=== PATIENT | male | born 1985 | race Two or more races ===

== ENCOUNTER 2019-08-17 21:26 | Emergency (ER) | payer OTHER ==
[~2019-08-17] VITALS: Ht 170.2 cm; Wt 68.0 kg
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
--- NOTE | 2019-08-18 00:11 | NUR ---
PATIENT IS SLEEPING. EASILY AROUSABLE THROUGH VERBAL AND MECHANICAL STIMULI. CONNECTED TO MONITOR. BREATHING EVENLY AND UNLABORED ON ROOM AIR. SITTER AT BEDSIDE
[2019-08-18 05:37] VITALS: BP 123/76
--- NOTE | 2019-08-18 05:37 | NUR ---
Patient is ambulatory with a steady gait.
--- NOTE | 2019-08-18 05:37 | NUR ---
Patient discharged to home in stable condition. Written and verbal after care instructions given. Patient verbalizes understanding of instruction.
== END 2019-08-18 05:38 | disposition home or self-care (01) ==
LOC: EDBD 21:29 → ER 21:29
DX: F10.129 Alcohol abuse with intoxication, unspecified (principal); Y90.9 Presence of alcohol in blood, level not specified

== ENCOUNTER 2019-08-23 22:48 | Emergency (ER) | payer OTHER ==
[~2019-08-23] VITALS: Ht 172.7 cm; Wt 70.8 kg
--- NOTE | 2019-08-23 23:10 | NUR ---
BIBRA[address] ETOH, DENIES SI/HI, STATES HE'S DEPRESSED. PT AAOX3, VSS. DENIES CP, SOB, N/V AT THIS TIME. PT SEEN & EVAL'D BY DR. MCINTOSH. WILL CONT TO MONITOR.
[2019-08-24 05:21] VITALS: BP 121/73
--- NOTE | 2019-08-24 05:21 | NUR ---
Patient discharged to home in stable condition. Written and verbal after care instructions given. Patient verbalizes understanding of instruction. Pt ambulated with steady gait. vss.
== END 2019-08-24 05:22 | disposition home or self-care (01) ==
LOC: ER 22:48
DX: F10.129 Alcohol abuse with intoxication, unspecified (principal); Y90.9 Presence of alcohol in blood, level not specified
CPT/HCPCS: 82962-TC

== ENCOUNTER → 2019-10-12 | Emergency (ER) | payer OTHER ==
[~2019-10-12] VITALS: Ht 170.2 cm; Wt 68.0 kg
[~2019-10-12] MED LIST: CHLORDIAZEPOXIDE HCL 25 MG CAPSULE ONE
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
[2019-10-12] MEDS: CHLORDIAZEPOXIDE HCL 25 MG CAPSULE PO ONE (16:05)
--- NOTE | 2019-10-12 16:33 | NUR ---
Patient given written and verbal discharge instructions. Patient verbalizes understanding of instructions. Patient is ambulatory with steady gait. Refuses offer of half-way placement. Patient given list of available shelters in surrounding area. In proper clothing upon discharge, no belongings when patient was brought here. Name band removed.
[2019-10-12 16:34] VITALS: BP 136/90
--- NOTE | 2019-10-12 16:36 | NUR ---
UNABLE TO DEPART.
== END | disposition home or self-care (01) ==
LOC: ER 15:48
DX: F10.239 Alcohol dependence with withdrawal, unspecified (principal); Y90.9 Presence of alcohol in blood, level not specified

== ENCOUNTER 2019-10-28 07:15 | Inpatient (IN) | payer OTHER ==
[~2019-10-28] VITALS: Ht 172.7 cm; Wt 72.2 kg
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
--- NOTE | 2019-10-28 07:22 | NUR ---
PT SEEN AND EXAMINED BY .
--- NOTE | 2019-10-28 07:22 | NUR ---
SEEN AND EXAMINED BY .
[2019-10-28] MEDS ORDERED: LORAZEPAM INJ 2 MG/ML VIAL IVP ONE (07:30)
[2019-10-28] MEDS ORDERED: IV NS 0.9% 1,000 ML BAG IV ONE (07:30)
--- NOTE | 2019-10-28 07:45 | NUR ---
URINAL GIVEN BUT UNABLE TO PROVIDE URINE SPECIMEN THIS TIME.
[2019-10-28] MEDS ORDERED: LORAZEPAM INJ 2 MG/ML VIAL ONE ×2 (07:46→10:35)
[2019-10-28 09:00] LABS: BASOPHILS # (AUTO) 0.1 /CMM (0.0-0.2); BASOPHILS % (AUTO) 1.4 % (0.0-2.0); EOSINOPHILS % (AUTO) 0.1 % (0.0-6.0); HEMATOCRIT 28 % (39-51); HEMOGLOBIN 8.8 g/dL (13.5-17.5); LYMPHOCYTES # (AUTO) 0.4 /CMM (0.8-4.8); LYMPHOCYTES % (AUTO) 4.1 % (20.0-44.0); MEAN CORPUSCULAR HGB CONC 32 g/dl (31.0-36.0); MEAN CORPUSCULAR VOLUME 76 fL (80-96); MONOCYTES # (AUTO) 0.3 /CMM (0.1-1.30); MONOCYTES % (AUTO) 3.3 % (2.0-12.0); NEUTROPHILS # (AUTO) 7.7 /CMM (1.8-8.9); NEUTROPHILS % (AUTO) 91.1 % (43.0-81.0); PLATELET COUNT (AUTO) 137 /CMM (150-450); RED BLOOD CELL COUNT(AUTO) 3.68 MIL/uL (4.5-6.0); WHITE BLOOD COUNT (AUTO) 8.5 K/uL (4.3-11.0)
[2019-10-28 10:14] LABS: CALCIUM, SERUM 7.6 mg/dL (8.5-10.1); CARBON DIOXIDE 23 mmol/L (21-32); CHLORIDE 92 mmol/L (98-107); CREATININE 0.6 mg/dL (0.6-1.3); GLUCOSE 103 mg/dL (74-106); POTASSIUM 3.6 mmol/L (3.5-5.1); SODIUM SERUM 130 mmol/L (136-145); UREA NITROGEN, BLOOD 6 mg/dL (7-18)
[2019-10-28 10:26] LABS: ACETAMINOPHEN 6 ug/ml (10-30); ALANINE AMINOTRANSFERASE 56 U/L (12-78); ALBUMIN 3.1 g/dL (3.4-5.0); ALCOHOL, BLOOD < 3 mg/dL (0-0); ALKALINE PHOSPHATASE 93 U/L (46-116); ASPARTATE AMINOTRANSFERASE 110 U/L (15-37); BILIRUBIN,DIRECT 0.3 mg/dL (0.0-0.2); TOTAL PROTEIN, SERUM 6.4 g/dL (6.4-8.2)
[2019-10-28 10:27] LABS: BILIRUBIN,URINE Negative (NEGATIVE); BLOOD, URINE Negative Ery/uL (NEGATIVE); COLOR,URINE Yellow (YELLOW); KETONES,URINE 40 (NEGATIVE); LEUKOCYTE ESTERASE ,URINE Trace (NEGATIVE); NITRITE, URINE Negative (NEGATIVE); PROTEIN,URINE Negative (NEGATIVE); UGLUCOSE Negative (NEGATIVE); UROBILINOGEN,URINE 0.2 EU/dL (0.2)
[2019-10-28 10:27] LABS: SALICYLATE 0.5 mg/dL (2.8-20.0)
--- NOTE | 2019-10-28 10:29 | NUR ---
PANEL ON-CALL PAGED
[2019-10-28] MEDS ORDERED: LORAZEPAM INJ 2 MG/ML VIAL IV ONE (10:30)
[2019-10-28 10:31] LABS: APPEARANCE,URINE SLIGHTLY HAZY (CLEAR)
[2019-10-28 10:47] LABS: BACTERIA,URINE Few /HPF (None Seen); RBC,URINE 0-2 /HPF (0-2); SQUAMOUS EPITHELIAL CELL,UR Few /HPF (None Seen); WBC,URINE 20-30 /HPF (0-3)
[2019-10-28] MEDS ORDERED: IV NS 0.9% 1,000 ML IV ONE (11:00)
--- NOTE | 2019-10-28 11:37 | NUR ---
ROOM GIVEN 204-1 TELE
--- NOTE | 2019-10-28 11:40 | NUR ---
REPORT GIVEN TO CARMENZA LOCKWOOD FOR LUCILLE. WITH ONGOING IVF TRANSFUSING WELL.
--- NOTE | 2019-10-28 12:28 | NUR ---
CM ARG CALLED TO GIVE VERBAL AUTH PER CLAUDIO
[2019-10-28] MEDS ORDERED: Z GUARD REMEDY 2 OZ OINT TP PRN (12:30)
[2019-10-28] MEDS ORDERED: MAG HYDROX/AL HYDROX/SIMETH 30 ML UDC PO PRN (12:30)
[2019-10-28] MEDS ORDERED: MAGNESIUM HYDROXIDE 30 ML UDC PO PRN (12:30)
--- NOTE | 2019-10-28 12:48 | NUR ---
COVID SWAB DONE AND SENT TO LAB
[2019-10-28 13:10] VITALS: BP 122/79
--- NOTE | 2019-10-28 13:10 | NUR ---
M/S 2 FOOD SELECTOR NOTES PATIENT ADMITTED FROM ER A/O X3 MALE, TELE SR-78 ON DX OF ALCOHOL WITHDRAW. PATIENT SHAKING, , ROOM AIR, ANXIOUS, DROPLET ISOLATION, ALSO WAS COMPLAINING OF GENERALIZED PAIN 4/10 PER PAIN SCALE. PATIENT USING URINAL. ON SKIN ASSESSMENT MULTIPLE BRUISES, AND SCABS, PICTURE TAKEN , V/S TAKEN BP- 123/79, P-78,R-18, T-98.4, O2-100 ROOM AIR. HOSPITALIST AWARE OF NEW PATIENT AN D MEDICATION, CALL LIGHT WITHIN TO REACH. SAFETY, ANS SEIZURE PRECAUTION MAINTAINED ALL THE TIME.
[2019-10-28] MEDS: IV NS 0.9% 1,000 ML IV PRN (13:42)
[2019-10-28] MEDS: LORAZEPAM INJ 2 MG/ML VIAL IV PRN ×2 (13:47→19:50)
--- NOTE | 2019-10-28 13:47 | NUR ---
rn notes administered Ativan 2 mg/ml iv push for anxiety, seizure, and shivering, v/s taken bp 123/78,p-78, infusing ns @ 75 ml/hr on right wrist. continued monitoring for alcohol withdraw.
[2019-10-28] MEDS: CEFTRIAXONE 1 G in IV D5W 50 ML IV SCH (15:24)
[2019-10-28 16:00] VITALS: BP 107/63
[2019-10-28] MEDS: MORPHINE SULFATE INJ 2 MG/ML DISP.SYRIN IV PRN ×2 (16:33→20:41)
--- NOTE | 2019-10-28 16:33 | NUR ---
RN NOTES ADMINISTERED MORPHINE SULFATE 2 MG/ML IV PUSH FOR GENERALIZED PAIN 08/15 PER PATIENT REQUEST, V/S TAKEN BP -107/63, P-80, R-19. CONTINUED MONITORING.
--- NOTE | 2019-10-28 18:00 | NUR ---
RN NOTES PATIENT RESTING IN THE BED . MEDICATION WERE ADMINISTERED FOR PAIN EFFECTIVE, INFUSING NS AT 75 ML/HR ON RIGHT WRIST. PATIENT USING URINAL. CALL LIGHT WITHIN TO REACH. ENDORSED ONCOMING NURSE FOLLOW PLAN OF CARE.
--- NOTE | 2019-10-28 19:30 | NUR ---
FOOD TRUCK CATERER OPENING NOTES BEDSIDE REPORT RECIEVED FROM ALEX HERR. PATIENT RESTING IN THE BED. PT SEEN TO HAVE TREMORS IN HANDS AND REPORTS SEEING SPOTS. NS INFUSING NS AT 75 ML/HR ON RIGHT WRIST PT COMPLAINS OF PAIN TO RIGHT WRIST IVF STOPPED IV SITE PAINFUL TO TOUCH. IV DC'D DRESSING APPLIED. PATIENT USING URINAL. CALL LIGHT WITHIN REACH. WILL CONT CARE AND MONITOR. POC REVIEWED QUESTIONS CONCERNS ADDRESSED.
[2019-10-28 20:00] VITALS: BP 138/88
[2019-10-29] VITALS: BP 136/78
[2019-10-29] MEDS: LORAZEPAM INJ 2 MG/ML VIAL IV PRN ×4 (00:17→20:10)
[2019-10-29] MEDS: IV NS 0.9% 1,000 ML IV PRN (03:55)
[2019-10-29 04:00] VITALS: BP 121/72
[2019-10-29] MEDS: MORPHINE SULFATE INJ 2 MG/ML DISP.SYRIN IV PRN ×3 (04:02→23:38)
--- NOTE | 2019-10-29 06:54 | NUR ---
OPERATOR LIGHTS CLOSING NOTES PATIENT RESTING IN BED. RESP EVEN AND UNLABORED. NS INFUSING NS AT 75 ML/HR ON RIGHT FOREARM WITH NO S/S OF COMPLICATIONS. PATIENT USING URINAL. CALL LIGHT WITHIN REACH. WILL ENDORSE TO ONCOMING SHIFT .
[2019-10-29 06:55] LABS: EOSINOPHILS % (AUTO) 2.2 % (0.0-6.0); HEMATOCRIT 30 % (39-51); HEMOGLOBIN 9.4 g/dL (13.5-17.5); LYMPHOCYTES # (AUTO) 0.7 /CMM (0.8-4.8); LYMPHOCYTES % (AUTO) 19.7 % (20.0-44.0); MEAN CORPUSCULAR HGB CONC 31 g/dl (31.0-36.0); MEAN CORPUSCULAR VOLUME 76 fL (80-96); MONOCYTES # (AUTO) 0.2 /CMM (0.1-1.30); MONOCYTES % (AUTO) 5.6 % (2.0-12.0); NEUTROPHILS # (AUTO) 2.6 /CMM (1.8-8.9); NEUTROPHILS % (AUTO) 71.5 % (43.0-81.0); PLATELET COUNT (AUTO) 134 /CMM (150-450); RED BLOOD CELL COUNT(AUTO) 3.98 MIL/uL (4.5-6.0); WHITE BLOOD COUNT (AUTO) 3.6 K/uL (4.3-11.0)
[2019-10-29 07:13] LABS: CALCIUM, SERUM 8.2 mg/dL (8.5-10.1); CREATININE 0.6 mg/dL (0.6-1.3); MAGNESIUM 1.8 mg/dL (1.8-2.4); PHOSPHORUS 2.9 mg/dL (2.5-4.9); POTASSIUM 3.3 mmol/L (3.5-5.1)
[2019-10-29 07:22] LABS: THYROID STIMULATING HORMONE 5.032 uIU/mL (0.358-3.74)
--- NOTE | 2019-10-29 07:30 | NUR ---
RN Opening note Received patient in bed AO x 4, able to responds all stimuli, denies pain at this time. Skin is warm to touch, keep clean/dry, intact IV site. Respiratory even and unlabored on room air, O2sat 100%. Keep bed in locked with elevated HOB for ensure airway and aspiration precaution. Call light within reach, will continue to monitor.
[2019-10-29 08:00] VITALS: BP 118/81
[2019-10-29] MEDS ORDERED: POTASSIUM CHLORIDE 20 MEQ TAB.PRT.SR PO SCH (10:30)
[2019-10-29] MEDS: CEFTRIAXONE 1 G in IV D5W 50 ML IV SCH (13:23)
--- NOTE | 2019-10-29 15:29 | NUR ---
Patient presented to [facility] ER on 10/27 patient is currently in MedSurg2. Patient is a 34-year-old Male. Patient reports to be homeless and has been homeless for 4 years. Patient states he grew up in [place] but does not have family or friends. Patient states that he moves around a lot patient reported he was at [facility] not too long ago for alcohol withdrawal. Patient reports he was at [facility] for detox, per patient he cannot return to [facility] because he brought in alcohol to the facility. Patient informed this SW that he was staying at [facility] in [place] and would like to return there if he cannot be referred to a rehab right away. SW to follow up with [facility] about patient returning to their facility.
[2019-10-29] MEDS ORDERED: FOLI0.8C PO (15:36)
[2019-10-29] MEDS ORDERED: QUET25TA PO (15:36)
[2019-10-29] MEDS ORDERED: CLON0.1T PO (15:36)
[2019-10-29] MEDS ORDERED: BUSP15TA3 PO (15:36)
[2019-10-29] MEDS ORDERED: ESCI10TA PO (15:36)
[2019-10-29] MEDS ORDERED: VENL75CA62 PO (15:36)
[2019-10-29] MEDS ORDERED: TRAZ150T75 PO (15:36)
[2019-10-29] MEDS ORDERED: THIA100T88 PO (15:36)
[2019-10-29] MEDS ORDERED: MULT-81 PO (15:36)
[2019-10-29] MEDS ORDERED: GABA300C PO (15:36)
[2019-10-29] MEDS ORDERED: GABA600T12 PO (15:45)
--- NOTE | 2019-10-29 15:54 | NUR ---
This SW called [facility] . This SW was redirected by Chuy to call this number for the patients facility x [phone]. This SW spoke with Pura x [phone] stating that the patient can return after [facility] mandatory quarantine is over on MondayNovember 03. Pura states that there is no guarantee that that patient can return as he has been exited out of the system one week ago. Pura states that the patient can try to return to this [facility] on November 03. SW to remain available for all needs regarding this patient. SW to refer patient to a different detox center after verifying [facility] status.
[2019-10-29 16:00] VITALS: BP 118/72
--- NOTE | 2019-10-29 18:26 | NUR ---
MS/engineering technical writer Patient transferred from [facility] Oriented to new surroundings, call light within reach. Orders noted and carried out, both CT head and right shoulder x-ray unremarkable. Will continue to monitor and ensure safety.
--- NOTE | 2019-10-29 18:30 | NUR ---
Patient transferred room 315-1, given report Guillermina/CARMENZA.
--- NOTE | 2019-10-29 19:30 | NUR ---
TELE/RN NOTES OPENING NOTES RECEIVED PATIENT IN BED RESTING. PATIENT IS ALERT AND ORIENTED X 4. PATIENT STATES MILD PAIN AND DISCOMFORT, GENERAL BODY. NO SIGNS OF SOB OR RESPIRATORY DISTRESS NOTED. PATIENT IS ON ROOM AIR TOLERATING WELL. PATIENT HAS IV ACCESS ON RA #20G INTACT RUNNING NS AT 75 ML/HR. SAFETY MEASURES ARE IN PLACE, BED IS LOCKED AND PLACED IN THE LOW POSITION, SIDE RAILS UP X 3. CALL LIGHT WITHIN REACH. WILL CONTINUE TO MONITOR THROUGH OUT SHIFT.
[2019-10-29 20:00] VITALS: BP 125/75
--- NOTE | 2019-10-29 22:15 | NUR ---
TELE/RN NOTES PATIENT WAS COMPLAINING OF HEADACHE AND BODY SHAKES. ATIVAN 2MG IV WAS GIVEN. PATIENT V/S ARE STABLE. WILL CONTINUE TO MONITOR. Addendum: 10/29/[address] BRANCH RN NOTES TIME CORRETION FOR 2014
[2019-10-29] MEDS: ONDANSETRON HCL/PF 4 MG/2 ML VIAL IVP PRN (23:38)
[2019-10-30] VITALS: BP 117/74
[2019-10-30] MEDS: LORAZEPAM INJ 2 MG/ML VIAL IV PRN ×4 (02:09→20:35)
--- NOTE | 2019-10-30 02:15 | NUR ---
TELE/RN NOTES PATIENT STATED TROUBLE SLEEPING AND EXPERIENCING ANXIETY. GIVEN ATIVAN 2 MG IVP. V/S ARE STABLE WILL CONTINUE TO MONITOR.
[2019-10-30 04:00] VITALS: BP 125/85
[2019-10-30] MEDS: ONDANSETRON HCL/PF 4 MG/2 ML VIAL IVP PRN (05:13)
[2019-10-30] MEDS: MORPHINE SULFATE INJ 2 MG/ML DISP.SYRIN IV PRN ×4 (05:13→22:26)
--- NOTE | 2019-10-30 05:15 | NUR ---
TELE/RN NOTES PATIENT COMPLAINING OF PAIN ON RIGHT SHOULDER. GIVEN MORPHINE 2 MG IVP AND ZOFRAN 4 MG IVP. VITAL SIGNS ARE STABLE. WILL CONTINUE TO MONITOR.
--- NOTE | 2019-10-30 06:20 | NUR ---
TELE/RN NOTES CLOSING NOTES PATIENT IN BED RESTING. PATIENT IS ALERT AND ORIENTED X 4. NO SIGNS OF SOB OR RESPIRATORY DISTRESS NOTED. PATIENT IS ON ROOM AIR TOLERATING WELL. TELE READING SR 75. PATIENT HAS IV ACCESS ON RA #20G INTACT RUNNING NS AT 75 ML/HR. PATIENT IS COMFORTABLE AT THIS TIME. ALL PATIENT NEEDS HAVE BEEN MET DURING SHIFT. SAFETY MEASURES ARE IN PLACE, BED IS LOCKED AND PLACED IN THE LOW POSITION, SIDE RAILS UP X 3. CALL LIGHT WITHIN REACH. WILL ENDORSE CARE TO DAY SHIFT.
[2019-10-30 07:00] LABS: CALCIUM, SERUM 8.4 mg/dL (8.5-10.1); CREATININE 0.7 mg/dL (0.6-1.3); PHOSPHORUS 3.5 mg/dL (2.5-4.9); POTASSIUM 3.3 mmol/L (3.5-5.1)
--- NOTE | 2019-10-30 07:30 | NUR ---
REMOTE SENSING ENGINEER NOTES PATIENT RECEIVED IN BED RESTING COMFORTABLY. ALERT AND ORIENTED X 4 ON ROOM AIR WITH NO SIGNS OF RESPIRATORY DISTRESS PRESENT AT THIS TIME. PATIENT ON MEDICAL STAFFING COORDINATOR SINUS RHYTHM 80'S. IV ACCESS INTACT AND PATENT INFUSING NORMAL SALINE AT 75ml/hr. PATIENT PRESENTS WITH NO PAIN OR DISCOMFORT AT THIS TIME. SAFETY PRECAUTIONS IN PLACE WITH BED LOCKED, BED IN THE LOWEST POSITION, BILATERAL SIDE RAILS UP AND CALL LIGHT WITHIN EASY REACH AND WILL CONTINUE TO MONITOR PATIENT.
[2019-10-30 08:00] VITALS: BP 111/74
--- NOTE | 2019-10-30 08:46 | NUR ---
RN NOTES PATIENT REQUESTING ATIVAN DUE TO FEELING ANXIOUS STATED BY THE PATIENT. ADMINISTERED PRN ATIVAN 2mg/ml ORDERED. WILL CONTINUE TO MONITOR PATIENT.
[2019-10-30] MEDS ORDERED: POTASSIUM CHLORIDE 20 MEQ TAB.PRT.SR PO SCH (10:00)
--- NOTE | 2019-10-30 10:14 | NUR ---
RN NOTES PATIENT COMPLAINING OF PAIN ON RIGHT SHOULDER AND GENERALIZED BODY ACHES. REQUESTING PAIN MEDICATION ADMINISTERED MORPHINE 2mg ORDERED. WILL CONTINUE TO MONITOR PATIENT.
[2019-10-30] MEDS: CEFTRIAXONE 1 G in IV D5W 50 ML IV SCH (12:49)
[2019-10-30] MEDS: IV NS 0.9% 1,000 ML IV PRN (12:53)
--- NOTE | 2019-10-30 13:07 | NUR ---
RN NOTES PATIENT REQUESTING ATIVAN DUE TO FEELING ANXIOUS AND APPEARING TO BE RESTLESS. ADMINISTERED PRN ATIVAN 2mg/ml ORDERED. WILL CONTINUE TO MONITOR PATIENT.
[2019-10-30 16:14] VITALS: BP 110/60
--- NOTE | 2019-10-30 18:28 | NUR ---
MS RN NOTES PATIENT IN BED WATCHING TV RESTING COMFORTABLY. ALERT AND ORIENTED X 4, ON ROOM AIR WITH NO RESPIRATORY DISTRESS PRESENT AT THIS TIME, WITH EVEN NON-LABORED BREATHING AND NO SOB NOTED. PATIENT SKIN KEPT CLEAN AND DRY. IV ACCESS INTACT AND PATENT CURRENTLY INFUSING NORMAL SALINE AT 75ml/hr. MET ALL OF PATIENT'S NEEDS. SAFETY PRECAUTIONS IMPLEMENTED WITH BED LOCKED, BED IN THE LOWEST POSITION, BILATERAL SIDE RAILS UP, AND CALL LIGHT WITHIN EASY REACH OF THE PATIENT. WILL ENDORSE PLAN OF CARE TO UPCOMING NURSE.
[2019-10-30 20:00] VITALS: BP 125/67
[2019-10-31] MEDS: LORAZEPAM INJ 2 MG/ML VIAL IV PRN ×5 (01:50→21:16)
[2019-10-31] MEDS: IV NS 0.9% 1,000 ML IV PRN ×2 (04:00→17:43)
[2019-10-31] MEDS: MORPHINE SULFATE INJ 2 MG/ML DISP.SYRIN IV PRN ×2 (04:00→10:20)
--- NOTE | 2019-10-31 06:50 | NUR ---
MS RN CLOSING NOTE PATIENT IN BED RESTING COMFORTABLY. SEEN WITH EYES CLOSED ON ROOM AIR WITH NO RESPIRATORY DISTRESS EVEN NON-LABORED BREATHING AND NO . IV ACCESS INTACT AND PATENT CURRENTLY INFUSING NORMAL SALINE AT 75ml/hr. SAFETY PRECAUTIONS IN PLACE WITH BED LOCKED, BED IN THE LOWEST POSITION, BILATERAL SIDE RAILS UP, AND CALL LIGHT WITHIN REACH. WILL ENDORSE PLAN OF CARE TO UPCOMING NURSE. PLAN IS FR
[2019-10-31 07:13] LABS: CALCIUM, SERUM 8.1 mg/dL (8.5-10.1); CREATININE 0.7 mg/dL (0.6-1.3); POTASSIUM 3.9 mmol/L (3.5-5.1)
--- NOTE | 2019-10-31 07:31 | NUR ---
MS RN NOTES PATIENT RECEIVED IN BED RESTING COMFORTABLY. ALERT AND ORIENTED X 4 ON ROOM AIR WITH NO SIGNS OF RESPIRATORY DISTRESS PRESENT AT THIS TIME, WITH EVEN NON-LABORED BREATHING AND NO SOB NOTED. IV ACCESS INTACT AND PATENT INFUSING NORMAL SALINE AT 75ml/hr. PATIENT PRESENTS WITH NO PAIN OR DISCOMFORT AT THIS TIME. SAFETY PRECAUTIONS IN PLACE WITH BED LOCKED, BED IN THE LOWEST POSITION, BILATERAL SIDE RAILS UP AND CALL LIGHT WITHIN EASY REACH AND WILL CONTINUE TO MONITOR PATIENT.
[2019-10-31 08:00] VITALS: BP 106/63
--- NOTE | 2019-10-31 11:37 | NUR ---
MS RN NOTES PER HOSPITALIST ELIAS COULTER DNP, DISCONTINUE MORPHINE AND ORDER TORADOL IV 15 mg Q6H. WILL CARRY OUT ORDERS AND CONTINUE TO MONITOR PATIENT.
[2019-10-31] MEDS: CEFTRIAXONE 1 G in IV D5W 50 ML IV SCH (12:12)
[2019-10-31] MEDS: KETOROLAC TROMETHAMINE INJ 30 MG/ML VIAL IV PRN (15:38)
[2019-10-31 16:00] VITALS: BP 117/84
--- NOTE | 2019-10-31 18:23 | NUR ---
MS RN NOTES PATIENT IN BED RESTING COMFORTABLY. ALERT AND ORIENTED X 4, ON ROOM AIR WITH NO RESPIRATORY DISTRESS PRESENT AT THIS TIME, WITH EVEN NON-LABORED BREATHING AND NO SOB NOTED. PATIENT SKIN KEPT CLEAN AND DRY. IV ACCESS INTACT AND PATENT CURRENTLY INFUSING NORMAL SALINE AT 75ml/hr. MET ALL OF PATIENT'S NEEDS. SAFETY PRECAUTIONS IMPLEMENTED WITH BED LOCKED, BED IN THE LOWEST POSITION, BILATERAL SIDE RAILS UP, AND CALL LIGHT WITHIN EASY REACH OF THE PATIENT. WILL ENDORSE PLAN OF CARE TO UPCOMING NURSE.
[2019-10-31 20:00] VITALS: BP 130/74
--- NOTE | 2019-10-31 20:02 | NUR ---
MS ANTENNA DESIGN ENGINEER INITIAL NOTES RECEIVED REPORT FROM AM NURSE ARABELLA AND SEEN PT IN BED LYING WATCHING TV AT THIS TIME, DENIES ANY PAIN OR ANY DISCOMFORT. NOT IN ANY DISTRESS NOTED. KEPT HIM COMFORTABLE AT ALL TIMES. IVF NS AT 75ML/HR AT THIS TIME ON HIS RIGHT FOREARM PATENT AND INTACT. CALL LIGHT AT REACH. WILL CONTINUE MONITORING.
--- NOTE | 2019-10-31 21:16 | NUR ---
MS RN NOTES PATIENT COMPLAINING OF AGITATION. GIVEN PRN ATIVAN AT 2115. WILL CONTINUE TO MONITOR.
[2019-11-01] MEDS: KETOROLAC TROMETHAMINE INJ 30 MG/ML VIAL IV PRN ×3 (06:12→19:59)
--- NOTE | 2019-11-01 06:12 | NUR ---
ms rn note administered toradol 15mg for pain 10/10 in right elbow, neck and generalized all over body. will continue to monitor.
--- NOTE | 2019-11-01 07:07 | NUR ---
ms physician pediatrician closing notes pt resting comfortably in bed after toradol given by michelle orona. Stable throughout the night and slept well after the ativan given last night. kept him comfortable at all times. all due meds given and all needs met. place call light at reach. endorse to am nurse for continuity of care.
--- NOTE | 2019-11-01 07:17 | NUR ---
ms rn note patient stated pain still remains at a 7/10. after administering toradol 15mg.
--- NOTE | 2019-11-01 07:30 | NUR ---
RN OPENING NOTES Received patient in bed, A/Ox4, awake, on room air, SPO2 is 100%, no SOB, resp distress noted at this time.Complains in pain 8/10 at his shoulder and neck area, last pain medication was at 0612. IV line noted on right forearm, intact and patent, running NS @ 75 cc/hr, tolerating well.Patient is on REGULAR diet, ambulatory. Skin zimmer is noted, on R elbow and R knee, bruises on chest and scabs.Safety measures in p;zeeshan, bed in lowest position, call light in reach, will cont to monitor
[2019-11-01 08:00] VITALS: BP 116/75
[2019-11-01] MEDS: LORAZEPAM INJ 2 MG/ML VIAL IV PRN ×2 (08:39→16:24)
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
--- NOTE | 2019-11-01 12:10 | NUR ---
demurrage worker at bed site
--- NOTE | 2019-11-01 12:38 | NUR ---
Repacker met with the patient at bedside. This SW was attempting to refer the patient to a detox program. Unfortunately, there are no beds available at the moment. SW informed the patient of this and provided a list of drug and treatment centers that he can call to check bed availability. Patient also reminded the patient he can return to [facility] in which he was staying at after shelters mandatory quarantine is over on Friday 11/03. PLAN: Patient when medically cleared for discharge to return to [facility] x [phone] [facility] on Friday 11/03. Patient stated, If I am discharged before then I can stay on the streets for a few days. Patient given the following resources. Substance Abuse resources provided included: [facility] Substance Abuse Self-Helpline ([facility]) ; [facility] [address] [facility]. [place] [id number] ; [facility] [address] [facility] [address] ; [facility] [address] [place] [facility] [phone] ; [facility] [phone] ; [facility] [address] [facility] [phone] ; [facility] [place] 9[address] [facility] [phone] ; [facility] Substance Abuse Helpline([facility])-[facility] ; [facility] ; [facility]; [facility] [place]; [facility] N[place]; [place] [facility] [place]; [place] [facility] [place]; [facility] [place], [facility] Marie [place]; Alcoholics Anonymous -[facility]; Bu[facility]Wh[facility] ; Marijuana Anonymous -[facility]; Narcotics Anonymous www.na.org. Year-round shelters : [facility] [place] [address] [place], [place] [phone] ; [facility] [place] [address] [place] [address]; [facility] [id number] [facility] [address] Hygiene: [facility]: [address] [place] ; [facility] [address] [facility] ; [facility] [address] [facility] . Food Resources: [facility] [facility] at [facility]- [address] [facility]; Meet Each Need wit Dignity ([facility]) [address] [facility]; [facility] [address] [facility]; [facility] 4[address] [facility]. Mental Health resources provided: [facility] [address] [place] [address] ; [facility] [address], [place] [address] ; Francine Ribeiro [facility] Mental [facility] [address] [place] [address] ; [facility] [address] [place], [place] [id number]
--- NOTE | 2019-11-01 13:10 | NUR ---
Patient pulled out IV line, will insert new
--- NOTE | 2019-11-01 13:30 | NUR ---
IV line started R hand G22, intact, flushed and patent
[2019-11-01] MEDS: CEFTRIAXONE 1 G in IV D5W 50 ML IV SCH (13:33)
[2019-11-01 16:00] VITALS: BP 103/65
--- NOTE | 2019-11-01 16:10 | NUR ---
PATIENT REPORTS SEVERE ANXIETY ASKING FOR ATIVAN, WILL ADMINISTER PRN
--- NOTE | 2019-11-01 18:52 | NUR ---
RN CLOSING NOTES PATIENT REMAINS IN THE BED, TOLERATING TREATMENT WELL, MEDICATIONS GIVEN, COMFORT NEEDS ATTENDED, SAFETY MEASURES IN PLACE, CALL LIGHT IN REACH, WILL ENDORSE TO PM RN FOR LUCILLE
[2019-11-01 20:00] VITALS: BP 110/68
--- NOTE | 2019-11-01 20:00 | NUR ---
RN NOTES PM SHIFT RECEIVED PATIENT IN BED, ALERT AND ORIENTED X4, ROOM AIR, COMPLAINING OF PAIN, HAS TORADOL 15 MG IV. ANXIOUS AT TIMES, AMBULATORY, CONTINENT, NS AT 75 ML/HR, CALL LIGHT WITHIN REACH, WILL CONTINUE TO MONITOR.
[2019-11-01] MEDS: IV NS 0.9% 1,000 ML IV PRN (21:08)
[2019-11-02] VITALS: BP 113/70
[2019-11-02] MEDS: LORAZEPAM INJ 2 MG/ML VIAL IV PRN ×2 (00:58→10:37)
--- NOTE | 2019-11-02 06:09 | NUR ---
RN NOTES PM SHIFT ALERT AND ORIENTED X4, ROOM AIR, PAIN MANAGED BY TORADOL WITH ADEQUATE RELIEF, ANXIOUS, NO S/S OF ALCOHOL WITHDRAWAL, GIVEN ATIVAN X1, NS AT 75 ML/HR, WITH DISCHARGE ORDER, PLANNING TO GO TO [facility], AWAITING BED AVAILABILITY.
--- NOTE | 2019-11-02 07:04 | NUR ---
MS RN OPENING NOTE RECEIVED PT AWAKE IN BED AT THIS TIME. AOX4. NO SOB NOTED, NO S/ S OF ANY ACUTE DISTRESS NOTED. NO C/O PAIN AT THIS TIME. PT ABLE TO MAKE NEEDS KNOWN. RESPIRATIONS ARE EVEN AND UNLABORED. IV ACCESS NOTED IN RFA G#22, PATENT, INTACT AND FLUSHING WELL. FALL AND SAFETY PRECAUTION IN PLACE AND MAINTAINED AT ALL TIMES. BED IN LOWEST LOCKED POSITION, HOB ELEVATED, SIDE RAILS UP X 2, CALL LIGHT WITHIN REACH. WILL CONTINUE TO MONITOR
[2019-11-02 08:00] VITALS: BP 124/75
[2019-11-02] MEDS: KETOROLAC TROMETHAMINE INJ 30 MG/ML VIAL IV PRN (08:58)
--- NOTE | 2019-11-02 09:00 | NUR ---
PT C/O OF RIGHT SHOULDER ACHING PAIN OF 6/10 WHILE CHANGING POSITION. VS WNL. PER PT REQUEST, TORADOL 15MG IV Q6HR PRN ADMINISTERED AT THIS TIME PER ORDER. WILL CONTINUE TO MONITOR
--- NOTE | 2019-11-02 10:40 | NUR ---
PT C/O ANXIETY.. VS WNL. PER PT REQUEST, ATIVAN 2MG IV Q2HR PRN FOR ETOH WITHDRAWAL ADMINISTERED AT THIS TIME PER ORDER. WILL CONTINUE TO MONITOR
--- NOTE | 2019-11-02 11:40 | NUR ---
CRIMINAL JUSTICE INSTRUCTOR NOTES PT DISCHARGED AT THIS TIME. PT IN MEDICALLY STABLE POSITION. ALL CARE, NEEDS, TREATMENT AND MEDICATIONS ADMINISTERED ANTICIPATED PER ORDER. PT DISCHARGE INSTRUCTIONS PROVIDED AND PT VERBALIZED UNDERSTANDING. IV ACCESS REMOVED, PRESSURE APPLIED, SECURE WITH GAUZE AND TAPE. NO SIGN OF BLEEDING OR INFILTRATION NOTED. BELONGINGS ACCOUNTED FOR, HOMELESS WAIVER SIGNED BY PT, PICTURES TAKEN AND FILED IN CHART. PT ACCOMPANIED TO LOBBY BY MYA FRANCO
== END 2019-11-02 11:40 | disposition home or self-care (01) | DRG 775 ==
LOC: ER 07:19 → OBSER 10:47 → OBSVTOIN 10:47 → TELE2 12:30 → CSC2 10-29 17:53 → MED 10-29 18:20 → TELE 10-29 21:02 → MED 10-30 12:10
PROVIDERS: ADMIT Nurse Practitioner Acute Care; ATTEND Nurse Practitioner Acute Care
DX: F10.239 Alcohol dependence with withdrawal, unspecified (principal); E87.1 Hypo-osmolality and hyponatremia; D69.59 Other secondary thrombocytopenia; D50.9 Iron deficiency anemia, unspecified; Z59.0 Homelessness; E86.1 Hypovolemia; Z87.891 Personal history of nicotine dependence; N39.0 Urinary tract infection, site not specified; M25.511 Pain in right shoulder; R74.0 Nonspecific elevation of levels of transaminase and lactic acid dehydrogenase [LDH]; W19.XXXA Unspecified fall, initial encounter; Y92.9 Unspecified place or not applicable
CPT/HCPCS: 36415; 70450-TC; 71045-TC; 73030-TC; 80048-TC; 80061-TC; 80076-TC; 80305; 81000-TC; 83540-TC; 83690-TC; 83735-TC; 84100-TC; 84443-TC; 85025-TC; 87081-TC; 87086-TC; G0378; G0480; J0696; J1885; J2060; J2270; J2405; J7030; J7060; U0003-CS

== ENCOUNTER 2020-03-19 11:06 | Emergency (ER) | payer OTHER ==
[~2020-03-19] VITALS: Ht 165.1 cm; Wt 81.6 kg
[~2020-03-19 11:06] MED LIST changes: +BUSP15TA3 PO; -CHLORDIAZEPOXIDE HCL 25 MG CAPSULE ONE; +CLON0.1T PO; +ESCI10TA PO; +FOLI0.8C PO; +GABA600T12 PO; +MULT-81 PO; +QUET25TA PO; +THIA100T88 PO; +TRAZ150T75 PO; +VENL75CA62 PO
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
[2020-03-19 12:08] LABS: BASOPHILS # (AUTO) 0.1 /CMM (0.0-0.2); BASOPHILS % (AUTO) 1.1 % (0.0-2.0); HEMATOCRIT 34 % (39-51); HEMOGLOBIN 11.1 g/dL (13.5-17.5); LYMPHOCYTES # (AUTO) 1.2 /CMM (0.8-4.8); LYMPHOCYTES % (AUTO) 13.7 % (20.0-44.0); MEAN CORPUSCULAR HGB CONC 33 g/dl (31.0-36.0); MEAN CORPUSCULAR VOLUME 78 fL (80-96); MONOCYTES # (AUTO) 0.7 /CMM (0.1-1.30); MONOCYTES % (AUTO) 8.2 % (2.0-12.0); NEUTROPHILS # (AUTO) 6.6 /CMM (1.8-8.9); PLATELET COUNT (AUTO) 224 /CMM (150-450); RED BLOOD CELL COUNT(AUTO) 4.31 MIL/uL (4.5-6.0); WHITE BLOOD COUNT (AUTO) 8.6 K/uL (4.3-11.0)
[2020-03-19 12:16] LABS: CALCIUM, SERUM 7.9 mg/dL (8.5-10.1); CREATININE 0.8 mg/dL (0.6-1.3); POTASSIUM 3.1 mmol/L (3.5-5.1)
--- NOTE | 2020-03-19 12:20 | NUR ---
PER NAYELI KHAN, WILL SEND REFERRAL TO [facility] AND WILL UPDATE US OF STATUS.
[2020-03-19 12:23] LABS: ALBUMIN 3.6 g/dL (3.4-5.0); BILIRUBIN,DIRECT 0.2 mg/dL (0.0-0.2); BILIRUBIN,TOTAL 0.6 mg/dL (0.2-1.0); TOTAL PROTEIN, SERUM 6.6 g/dL (6.4-8.2)
[2020-03-19 14:09] LABS: BILIRUBIN,URINE Negative (NEGATIVE); COLOR,URINE YELLOW (YELLOW); LEUKOCYTE ESTERASE ,URINE Negative (NEGATIVE); NITRITE, URINE Negative (NEGATIVE); PH,URINE 6.5 (5.0-8.0); PROTEIN,URINE Negative (NEGATIVE); UGLUCOSE Negative (NEGATIVE); UROBILINOGEN,URINE 0.2 EU/dL (0.2)
[2020-03-19 14:23] LABS: RBC,URINE 0-2 /HPF (0-2); WBC,URINE 0-2 /HPF (0-3)
[2020-03-19 14:24] LABS: BACTERIA,URINE Rare /HPF (None Seen); SQUAMOUS EPITHELIAL CELL,UR Rare /HPF (None Seen)
--- NOTE | 2020-03-19 14:25 | NUR ---
Joint Runner Consult: Joint Runner consult was requested by ER staff due to alcohol withdrawal. Pt is a 35 year old male who presented to the emergency room due to having chest pain, leg pain, and foot pain. Pt appears to be in a state of distress and pain and appeared to be in a depressed mood. Pt appears to be alert and oriented x4 (time, place, self and situation). Pt appears to be disheveled and ungroomed. Pt appears to be appropriately dressed. Pts ambulation could not be assessed as the pt is in pain. Pt states that he has been drinking alcohol and he fell and hurt himself. Pt states that his chest hurts as well as his leg and his foot. Pts face was contorted in agony as he spoke to the SW. Pt stated that he is depressed and has thoughts to end his life ever so often. Pt stated that he does not want to be homeless anymore and states that he wants placement. Pt stated that she will provide him with substance abuse and homeless resources. SW also stated that she would refer the pt for voluntary psychiatric admission. Plan: NAYELI faxed a referral to [facility] to the fax number [phone] and to [facility] to the fax number: [phone].
--- NOTE | 2020-03-19 14:30 | NUR ---
RAPID COVID SWAB DONE AND SENT TO LAB
[2020-03-19] MEDS ORDERED: ONDANSETRON HCL/PF 4 MG/2 ML VIAL ONE (14:31)
[2020-03-19] MEDS: IV NS 0.9% 500 ML BAG IV ONE (14:40)
--- NOTE | 2020-03-19 14:40 | NUR ---
IV LINE ESTABLISHED G22 L FOREARM.
[2020-03-19] MEDS: ONDANSETRON HCL/PF 4 MG/2 ML VIAL IV ONE (14:41)
--- NOTE | 2020-03-19 15:43 | NUR ---
NAYELI spoke to Side Hemmer at [facility] who stated that the pts alcohol level is too high at 300. She stated that the pt will be accepted once it is lower than 130 and that they will save a bed for tomorrow. NAYELI informed ER nurse Booker. NAYELI also asked ER nurse Booker for COVID test to be done on the pt as [facility] is requesting a result before they can place.
--- NOTE | 2020-03-19 16:05 | NUR ---
COVID RESULT: NEGATIVE
--- NOTE | 2020-03-19 16:34 | NUR ---
NAYELI faxed the negative covid results to [facility] to the fax number: [phone].
[2020-03-19] MEDS ORDERED: KETOROLAC TROMETHAMINE 15 MG/ML VIAL ONE (17:39)
[2020-03-19] MEDS: KETOROLAC TROMETHAMINE INJ 30 MG/ML VIAL IV ONE (17:44)
--- NOTE | 2020-03-19 19:11 | NUR ---
REPORT GIVEN TO JAVIER HERR FOR LUCILLE
--- NOTE | 2020-03-19 21:17 | NUR ---
pt denies si/hi Patient discharged to home in stable condition. Written and verbal after care instructions given. Patient verbalizes understanding of instruction.
[2020-03-19 21:18] VITALS: BP 133/71
== END 2020-03-19 21:18 ==
LOC: ER 11:09
DX: F10.129 Alcohol abuse with intoxication, unspecified (principal); Y90.8 Blood alcohol level of 240 mg/100 ml or more; Z59.0 Homelessness; M25.561 Pain in right knee; M25.512 Pain in left shoulder; Z20.822 Contact with and (suspected) exposure to COVID-19; Z91.81 History of falling; G40.909 Epilepsy, unspecified, not intractable, without status epilepticus; Z79.899 Other long term (current) drug therapy
CPT/HCPCS: 36415; 80048; 80076; 80299; 80307; 80320; 81001; 85025; 87426; 96361; 96374; 96375; 99285; C9803; J1885; J2405; J7030; G0480

== ENCOUNTER 2020-03-20 05:11 | Emergency (ER) | payer OTHER ==
[~2020-03-20] VITALS: Ht 165.1 cm; Wt 81.6 kg
[2020-03-20 05:12] VITALS: BP 111/59
== END 2020-03-20 05:33 | disposition home or self-care (01) ==
LOC: ER 05:13
DX: Z59.0 Homelessness (principal); Z79.899 Other long term (current) drug therapy

== ENCOUNTER 2020-03-21 13:00 | Emergency (ER) | payer OTHER ==
[~2020-03-21] VITALS: Ht 167.6 cm; Wt 79.4 kg
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
--- NOTE | 2020-03-21 17:25 | NUR ---
Patient given written and verbal discharge instructions. Patient verbalizes understanding of instructions. Patient is ambulatory with steady gait. Refuses offer of alf placement. Patient given list of available shelters in surrounding area.
[2020-03-21 17:27] VITALS: BP 128/84
== END 2020-03-21 17:28 | disposition home or self-care (01) ==
LOC: ER 13:03
DX: F10.129 Alcohol abuse with intoxication, unspecified (principal); Z59.0 Homelessness; Z79.899 Other long term (current) drug therapy; Y90.9 Presence of alcohol in blood, level not specified